=== PATIENT | female | born 1985 | race Caucasian/White ===

== ENCOUNTER → 2016-10-07 | Outpatient (CLI) | payer OTHER | LOC: OD 11:47 | PROVIDERS: ATTEND Nurse Practitioner | DX: G62.9 Polyneuropathy, unspecified (principal) | CPT/HCPCS: 72110 ==

== ENCOUNTER → 2016-10-21 | Outpatient (CLI) | payer OTHER | LOC: RAD 10:16 | PROVIDERS: ATTEND Nurse Practitioner | DX: G62.9 Polyneuropathy, unspecified (principal) | CPT/HCPCS: 70553; A9577 ==

== ENCOUNTER → 2016-12-11 | Outpatient (CLI) | payer OTHER | LOC: RAD 08:21 | PROVIDERS: ATTEND Nurse Practitioner | DX: G62.9 Polyneuropathy, unspecified (principal); M54.2 Cervicalgia | CPT/HCPCS: 72141; 72146 ==

== ENCOUNTER 2017-10-14 19:09 | Emergency (ER) | payer MEDICAID, OTHER ==
[2017-10-14] MEDS ORDERED: CYCLOBENZAPRINE HCL 10 MG TABLET PO ONE (20:09)
[2017-10-14] MEDS ORDERED: IBUPROFEN 800 MG TABLET PO ONE (20:09)
--- NOTE | 2017-10-14 20:09 | ER Document Report ---
HPI - HPI Patient complains to provider of: back pain Pain Level: 5 Context: Patient is a 32-year-old female presents emergency department with chief complaint of low back pain for the past 2 days. Patient states that she has a history of low back pain usually related to heavy lifting for her job. Patient states that she worked all this weekend that her back pain has become steadily worse. She admits to right paralumbar pain with associated sciatica. She also states that is on her left side but not as bad. She denies any urinary/ incontinence, saddle anesthesia. She states that she has taken over-the- counter Motrin approximately 400 mg at least twice a day which takes the edge off. She otherwise admits to intermittent headaches which she states are consistent with her previous history of tension headaches. She otherwise denies any fevers, chills. Primary care is with Elizabeth ELIZABETH and states very Past medical history significant for history of Raynolds, depression Past surgical history denies Social history current tobacco user, currently on Suboxone Last menstrual period unknown. Patient states she has an IUD - REPRODUCTIVE Reproductive: DENIES: : Past Medical History - Social History Smoking Status: Current Every Day Smoker Family History: Reviewed & Not Pertinent - Immunizations Hx Diphtheria, Pertussis, Tetanus Vaccination: Yes Vertical Provider Document - CONSTITUTIONAL Agree With Documented VS: Yes Notes: PHYSICAL EXAM GENERAL: Alert, interacts well. HEAD: Normocephalic, atraumatic. EYES: Pupils equal, round, and reactive to light. Extraocular movements intact. ENT: Oral mucosa moist, tongue midline. NECK: Full range of motion. Supple. Trachea midline. BACK: tenderness to palpation of the bilateral paralumbar musculature with pain reproducible to palpation 5 out of 5 strength both distally and proximally bilateral lower extremities. 2+ patellar reflexes bilaterally. No clonus. Sensation grossly intact in the bilateral lower extremities. Patient is able to ambulate without difficulty. EXTREMITIES: Moves all 4 extremities spontaneously. No edema, radial and dorsalis pedis pulses 2/4 bilaterally. No cyanosis. NEUROLOGICAL: Alert and oriented x4. Normal speech. PSYCH: Normal affect, normal mood. SKIN: Warm, dry, normal turgor. No rashes or lesions noted. - INFECTION CONTROL TRAVEL OUTSIDE OF THE [place] IN LAST 30 DAYS: No - RESPIRATORY O2 Sat by Pulse Oximetry: 99 Course - Re-evaluation Re-evalutation: 10/14/17 21:50 Patient is a 32-year-old female is hemodynamically stable, no acute distress and afebrile. The patient presents with low back pain without signs of spinal cord compression, cauda equina syndrome, infection, aneurysm, or other serious etiology. The patient is neurologically intact. Given the extremely low risk of these diagnoses further testing and evaluation for these possibilities does not appear to be indicated at this time. The patient has been instructed to return if the symptoms worsen or change in any way. Patient also requesting a splint for her left breast due to wrist sprain that she suffered at work a week ago. No evidence of deformity, underlying swelling. Full range of motion. - Vital Signs Vital signs: Temp Pulse Resp BP Pulse Ox 98.5 F 87 18 114/72 99 10/14/17 19:34 10/14/17 19:34 10/14/17 19:34 10/14/17 19:34 10/14/17 19:34 Discharge - Discharge Clinical Impression: Low back pain Qualifiers: Chronicity: acute Back pain laterality: bilateral Sciatica presence: with sciatica Sciatica laterality: bilateral sciatica Qualified Code(s): M54.42 - Lumbago with sciatica, left side; M54.41 - Lumbago with sciatica, right side; M54.41 - Lumbago with sciatica, right side Wrist pain Qualifiers: Laterality: left Qualified Code(s): M25.532 - Pain in left wrist Condition: Good Disposition: HOME, SELF-CARE Instructions: Wrist Sprain ([facility]) Additional Instructions: LOW BACK PAIN: Three out of every four people will have an episode of disabling back pain during their lifetime. Most commonly the pain is due to straining of the muscles and ligaments in the low back. Usual treatment includes: (1) Rest on a firm surface. Avoid lying on your stomach. (2) Ice pack the painful area. After a few days, gentle heat may be used intermittently to relax the area, or ice packs can be continued. (3) Medication may be needed -- muscle relaxers and antiinflammatory medicines are commonly used. (4) As the back improves, exercises are prescribed to strengthen the back and abdominal muscles. Your doctor will advise you on the proper care for your back at each stage in your recovery. You may be better in a few days -- or healing may take several weeks. If new symptoms of a "herniated disc" (radiation of pain, numbness, or tingling down the back of the leg or weakness in the leg) occur, you should be re-examined. Further testing may be necessary. MUSCLE RELAXERS: Muscle relaxing medications are usually prescribed for acute muscle spasm or injury to the neck and back. They are often combined with antiinflammatory pain medication for increased relief. You may stop the muscle relaxer when the pain and stiffness have improved. Start the medication again if spasms recur. Muscle relaxers may cause drowsiness, especially with the first dose. Do not operate machinery or drive while under the effects of the medication. Most muscle relaxers last up to 24 hours. Do not combine the medication with alcohol. ICE PACKS: Apply ice packs frequently against the painful area. Many different schedules are recommended, such as "20 minutes on, 20 minutes off" or "one hour ice, two hours rest." If you need to work, you may need to go longer between ice treatments. You should plan to have the area ice packed AT LEAST one fourth of the time. The ice should be applied over the wrap, tape, or splint, or over a layer of cloth -- not directly against the skin. Some ice bags have a built-in cloth and can be put directly on the skin. WARM PACKS: After approximately two days, apply gentle heat (such as a heating pad or hot water bottle) for about 20 to 30 minutes about every two hours -- at least four times daily. Warmth and elevation will help you make a more rapid recovery , and will ease the pain considerably. Do not use HOT heat, and never apply heat for longer than 30 minutes. The continuous heat can invisibly damage skin and muscles -- even when no burn is seen on the surface. Damaged muscles can make you MORE sore. FOLLOW-UP CARE: If you have been referred to a physician for follow-up care, call the physician s office for an appointment as you were instructed or within the next two days. If you experience worsening or a significant change in your symptoms, notify the physician immediately or return to the Emergency Department at any time for re-evaluation. Forms: Return to Work, Special Work Note
[2017-10-14 22:07] VITALS: BP 117/71
== END 2017-10-14 22:09 | disposition home or self-care (01) ==
LOC: ER 19:09
DX: M54.41 Lumbago with sciatica, right side (principal); M54.42 Lumbago with sciatica, left side; S63.502A Unspecified sprain of left wrist, initial encounter; M25.532 Pain in left wrist; X58.XXXA Exposure to other specified factors, initial encounter; R51 Headache; F17.200 Nicotine dependence, unspecified, uncomplicated; Z79.891 Long term (current) use of opiate analgesic
CPT/HCPCS: 99283; L3908; J3490 ×2

== ENCOUNTER → 2017-10-29 | Outpatient (CLI) | payer MEDICAID ==
--- NOTE | 2017-10-29 14:20 | RADIOLOGY REPORT (SQ) ---
EXAM DESCRIPTION: U/S ABDOMEN COMPLETE W/DOPPLER COMPLETED DATE/TIME: 10/29/2017 11:21 am REASON FOR STUDY: R10.9 UNSPECIFIED ABDOMINAL PAIN R10.9 UNSPECIFIED ABDOMINAL PAIN COMPARISON: Pelvic Ultrasound 07/31/2016 TECHNIQUE: Dynamic and static grayscale images acquired of the abdomen and recorded on PACS. Additio nal selected color Doppler and spectral images recorded. LIMITATIONS: None. FINDINGS: PANCREAS: Midline pancreas unremarkable LIVER: No masses. Echotexture normal. LIVER VASCULATURE: Normal directional flow of the main portal vein and hepatic veins. GALLBLADDER: No stones. Normal wall thickness. No pericholecystic fluid. ULTRASOUND-DETECTED CHOUDHURY'S SIGN: Negative. INTRAHEPATIC DUCTS AND COMMON DUCT: CBD and intrahepatic ducts normal caliber. No filling defects. INFERIOR VENA CAVA: Normal flow. AORTA: No aneurysm. RIGHT KIDNEY: Normal size. Normal echogenicity. No solid or suspicious masses. No hydronephros is. No calcifications. LEFT KIDNEY: Normal size. Normal echogenicity. No solid or suspicious masses. No hydronephrosi s. No calcifications. SPLEEN: Mild splenomegaly, 14 cm in greatest craniocaudad length. PERITONEAL AND PLEURAL SPACES: No ascites or effusions. OTHER: No other significant finding. IMPRESSION: Mild splenomegaly, 14 cm in length. Otherwise unremarkable abdominal ultrasound TECHNICAL DOCUMENTATION: JOB ID: [id number]- All Rights Reserved Reading location - IP/workstation name: [facility]
--- NOTE | 2017-10-29 14:22 | RADIOLOGY REPORT (SQ) ---
EXAM DESCRIPTION: U/S NON-OB PELVIS TV W/O DOP COMPLETED DATE/TIME: 10/29/2017 11:21 am REASON FOR STUDY: R10.9 R10.9 UNSPECIFIED ABDOMINAL PAIN COMPARISON: Pelvic ultrasound 06/30/2016 Lumbar spine plain films 10/07/2016 TECHNIQUE: Dynamic and static grayscale images acquired of the pelvis via transvaginal approach and recorded on PACS. Additional selected color Doppler and spectral images recorded. LIMITATIONS: None. FINDINGS: UTERUS: Contour normal. No mass. Uterus is 9.8 x 6.1 x 4.4 cm in size there is an IUD in the endometrial canal in good positioning. ENDOMETRIAL STRIPE: 6 mm in thickness. No focal or generalized endometrial thickening. No masses. CERVIX: No nabothian cysts. RIGHT OVARY: Right ovary 3.1 x 3 x 2.3 cm in size with a 2 cm cyst RIGHT OVARY DOPPLER: Normal arterial vascular flow without evidence for torsion. LEFT OVARY: No abnormal masses. Left ovary 3.7 x 2.2 x 2.1 cm in size LEFT OVARY DOPPLER: Normal arterial vascular flow without evidence for torsion. FREE FLUID: None noted. OTHER: No other significant finding. IMPRESSION: IUD in the endometrial canal in good positioning. 2 cm right ovarian cyst. TECHNICAL DOCUMENTATION: JOB ID: [id number] [employer]- All Rights Reserved Reading location - IP/workstation name: [email or web address]
== END ==
LOC: RAD 14:06
PROVIDERS: ATTEND Nurse Practitioner
DX: R10.9 Unspecified abdominal pain (principal)
CPT/HCPCS: 76700; 76830; 93976

== ENCOUNTER 2017-12-10 10:39 | Emergency (ER) | payer MEDICAID ==
[2017-12-10 10:53] VITALS: BP 132/76
--- NOTE | 2017-12-10 11:04 | ER Document Report ---
ED Skin Rash/Insect Bite/Abscs - General Chief Complaint: Rash Stated Complaint: POSSIBLE RASH Time Seen by Provider: 12/10/17 10:54 Notes: Patient is a 32-year-old female presenting to the emergency department complaining of several bug bites to the back of her neck 2 days. Patient works in [employer] department and is unsure of the type of insect that may have bitten her. TRAVEL OUTSIDE OF THE [place] IN LAST 30 DAYS: No - HPI Patient complains to provider of: Tender/swollen area, Insect bite Onset: Yesterday Onset/Duration: Gradual Quality of pain: No pain Skin Character: Papules Skin Temperature: Warm Quality of rash: Itchy Identify cause: No Similar symptoms previously: No Recently seen / treated by doctor: No - Related Data Allergies/Adverse Reactions: Penicillins Allergy (Verified 12/10/17 10:39) Sulfa (Sulfonamide Antibiotics) Allergy (Verified 12/10/17 10:39) Past Medical History - General Information source: Patient - Social History Smoking Status: Current Every Day Smoker Frequency of alcohol use: None Drug Abuse: None Lives with: Family Family History: Reviewed & Not Pertinent - Medical History Medical History: Negative Renal/ Medical History: Denies: Hx Peritoneal Dialysis - Immunizations Hx Diphtheria, Pertussis, Tetanus Vaccination: Yes Review of Systems - Review of Systems Constitutional: Chills, Malaise EENT: No symptoms reported Cardiovascular: No symptoms reported Respiratory: No symptoms reported Gastrointestinal: No symptoms reported Genitourinary: No symptoms reported Female Genitourinary: No symptoms reported Musculoskeletal: No symptoms reported Skin: See HPI Hematologic/Lymphatic: No symptoms reported Neurological/Psychological: No symptoms reported Physical Exam - Vital signs Vitals: Temp Pulse Resp BP Pulse Ox 98.1 F 75 16 132/76 H 98 12/10/17 10:50 12/10/17 10:50 12/10/17 10:50 12/10/17 10:50 12/10/17 10:50 Interpretation: Normal - General General appearance: Appears well, Alert - HEENT Head: Normocephalic, Atraumatic Eyes: Normal Pupils: PERRL - Respiratory Respiratory status: No respiratory distress Chest status: Nontender Breath sounds: Normal Chest palpation: Normal - Cardiovascular Rhythm: Regular Heart sounds: Normal auscultation Murmur: No - Abdominal Inspection: Normal Distension: No distension Bowel sounds: Normal Tenderness: Nontender Organomegaly: No organomegaly - Back Back: Normal, Nontender - Extremities General upper extremity: Normal inspection, Nontender, Normal color, Normal ROM , Normal temperature General lower extremity: Normal inspection, Nontender, Normal color, Normal ROM , Normal temperature, Normal weight bearing. No: Trevor's sign - Neurological Neuro grossly intact: Yes Cognition: Normal Orientation: AAOx4 [place] Coma Scale Eye Opening: Spontaneous Deni Coma Scale Verbal: Oriented [place] Coma Scale Motor: Obeys Commands Deni Coma Scale Total: 15 Speech: Normal Motor strength normal: LUE, RUE, LLE, RLE Sensory: Normal - Psychological Associated symptoms: Normal affect, Normal mood - Skin Skin Temperature: Warm Skin Moisture: Dry Skin Color: Normal Skin irregularity: Rash - Few clustered papular erythematous lesions to posterior neck. No vesicles. No fluctuance Course - Re-evaluation Re-evalutation: 12/10/17 11:14 History and physical are consistent with a hypersensitive reaction to an insect bite. There is no signs or symptoms of sepsis, Mackay Johnsons, meningitis. There is no pain with rash or diffuse erythroderma. No sloughing of skin 12/10/17 11:15 I will treat with oral and topical steroids, antihistamines and topical Dom Boros compresses for comfort. Home treatment, ED return precautions and primary care follow-up discussed. Patient agreeable with plan is stable for discharge - Vital Signs Vital signs: Temp Pulse Resp BP Pulse Ox 98.1 F 75 16 132/76 H 98 12/10/17 10:50 12/10/17 10:50 12/10/17 10:50 12/10/17 10:50 12/10/17 10:50 Discharge - Discharge Clinical Impression: Rash Insect bite Qualifiers: Encounter type: initial encounter Qualified Code(s): W57.XXXA - Bitten or stung by nonvenomous insect and other nonvenomous arthropods, initial encounter Condition: Stable Disposition: HOME, SELF-CARE Instructions: Swollen Insect Bite or Sting ([facility]), Steroid Medication, Topical Steroid Cream or Ointment ([facility]), Use of Diphenhydramine Additional Instructions: I am treating you for a hypersensitive to an insect bite Take all medications as prescribed I recommend Benadryl 50 mg every 6 hours until rash has improved Apply cool compresses to the bites for comfort and itch follow-up with your primary care if symptoms persist or worsen Prescriptions: Calcium Acetate/Al Sulfate [[place] Packet] 1 each TP TID PRN #30 packet PRN Reason: Hydrocortisone/Oatmeal/Aloe/E [Hydrocortisone 1% Cream] 1 applic TP BID #30 cream.gm. Ibuprofen [Motrin 800 Mg Tablet] 800 mg PO Q6H #20 tablet Prednisone 20 mg PO BID #16 tablet Forms: Return to Work
== END 2017-12-10 11:12 | disposition home or self-care (01) ==
LOC: ER 10:39
DX: S10.86XA Insect bite of other specified part of neck, initial encounter (principal); W57.XXXA Bitten or stung by nonvenomous insect and other nonvenomous arthropods, initial encounter; R53.81 Other malaise; R68.83 Chills (without fever); F17.200 Nicotine dependence, unspecified, uncomplicated; Z88.0 Allergy status to penicillin; Z88.2 Allergy status to sulfonamides
CPT/HCPCS: 99281

== ENCOUNTER 2018-03-19 18:37 | Observation (INO) | payer MEDICAID ==
[~2018-03-19 18:37] MED LIST: DEXAMETHASONE SOD PHOSPHATE INJ 4 MG/1 ML VIAL ONE; GLYCOPYRROLATE 1 MG/5 ML SYRINGE ONE; NEOSTIGMINE METHYLSULFATE 10 MG/10 ML VIAL ONE; ONDANSETRON HCL INJ/PF 4 MG/2 ML SDV ONE; ROCURONIUM BROMIDE INJ 50 MG/5 ML VIAL IV ONE; SUCCINYLCHOLINE CHLORIDE INJ 200 MG/10 ML VIAL ONE
[2018-03-19] MEDS ORDERED: ONDANSETRON 4 MG TAB.RAPDIS PO ONE (19:03)
--- NOTE | 2018-03-19 19:05 | ER Document Report ---
ED Medical Screen (RME) - General Chief Complaint: Lower Abdominal Pain Stated Complaint: ABDOMINAL PAIN Time Seen by Provider: 03/19/18 18:59 Notes: RAPID MEDICAL EVALUATION DISCLOSURE I have seen this patient as part of a Rapid Medical Evaluation and, if applicable, placed any initially appropriate orders. The patient will be seen and fully evaluated, including a full history and physical exam, by a provider ( in Main ED or Fast Track) when a room becomes available. 32-year-old female here with complaints of lower abdominal pain ongoing for the past day. She has had some associated nausea but no other symptoms. Pain is worse with movement. Has taken ibuprofen for the pain. States that she has frequency however this is baseline and unchanged from baseline she reports. Denies any previous history of UTI. EXAM Exquisite tenderness in all quadrants No peritoneal signs TRAVEL OUTSIDE OF THE [place] IN LAST 30 DAYS: No - Related Data Allergies/Adverse Reactions: Penicillins Allergy (Verified 03/19/18 18:39) Sulfa (Sulfonamide Antibiotics) Allergy (Verified 03/19/18 18:39) Past Medical History - Social History Chew tobacco use (# tins/day): No Frequency of alcohol use: None Drug Abuse: None Renal/ Medical History: Denies: Hx Peritoneal Dialysis - Immunizations Hx Diphtheria, Pertussis, Tetanus Vaccination: Yes Physical Exam - Vital signs Vitals: Temp Pulse Resp BP Pulse Ox 98.8 F 111 H 20 120/83 100 03/19/18 18:40 03/19/18 18:40 03/19/18 18:40 03/19/18 18:40 03/19/18 18:40 Course - Vital Signs Vital signs: Temp Pulse Resp BP Pulse Ox 98.8 F 111 H 20 120/83 100 03/19/18 18:40 03/19/18 18:40 03/19/18 18:40 03/19/18 18:40 03/19/18 18:40 Doctor's Discharge - Discharge Referrals: ALEC VELÁSQUEZ NP-C [Primary Care Provider] - Follow up as needed
[2018-03-19 19:45] LABS: ABSOLUTE BASOPHILS # (AUTO) 0.1 10^3/uL (0.0-0.2); ABSOLUTE EOSINOPHILS # (AUTO) 0.2 10^3/uL (0.0-0.6); ABSOLUTE LYMPHOCYTES (AUTO) 1.7 10^3/uL (0.5-4.7); ABSOLUTE NEUT (AUTO) 14.8 10^3/uL (1.7-8.2); BASOPHILS % (AUTO) 0.4 % (0-2); EOSINOPHILS % (AUTO) 0.9 % (0-6); HEMATOCRIT 42.4 % (36.0-47.0); HEMOGLOBIN 14.6 g/dL (12.0-15.5); LYMPHOCYTES % (AUTO) 9.8 % (13-45); MEAN CORPUSCULAR HEMOGLOBIN 29.1 pg (27.0-33.4); MEAN CORPUSCULAR HGB CONC 34.4 g/dL (32.0-36.0); MEAN CORPUSCULAR VOLUME 85 fl (80-97); MONOCYTES % (AUTO) 5.9 % (3-13); PLATELET COUNT 216 10^3/uL (150-450); RED BLOOD COUNT 5.01 10^6/uL (3.72-5.28); TOTAL CELLS COUNTED % (AUTO) 100 %; WHITE BLOOD COUNT 17.8 10^3/uL (4.0-10.5)
[2018-03-19 19:55] LABS: APPEARANCE,URINE CLEAR; BILIRUBIN,URINE NEGATIVE (NEGATIVE); COLOR,URINE YELLOW; GLUCOSE, URINE NEGATIVE (NEGATIVE); KETONES,URINE NEGATIVE (NEGATIVE); LEUKOCYTE ESTERASE,URINE NEGATIVE (NEGATIVE); NITRITE,URINE NEGATIVE (NEGATIVE); PROTEIN,URINE NEGATIVE (NEGATIVE); URINE SPECIFIC GRAVITY 1.012
[2018-03-19 20:14] LABS: ALANINE AMINOTRANSFERASE 16 U/L (9-52); ALBUMIN 4.7 g/dL (3.5-5.0); ALKALINE PHOSPHATASE 63 U/L (38-126); ANION GAP 15 (5-19); ASPARTATE AMINO TRANSFERASE 17 U/L (14-36); BILIRUBIN,DIRECT 0.3 mg/dL (0.0-0.4); BILIRUBIN,TOTAL 0.9 mg/dL (0.2-1.3); BLOOD UREA NITROGEN 9 mg/dL (7-20); CALCIUM 10.1 mg/dL (8.4-10.2); CARBON DIOXIDE 27 mmol/L (22-30); CHLORIDE 98 mmol/L (98-107); GLUCOSE 121 mg/dL (75-110); LIPASE 40.4 U/L (23-300); POTASSIUM 4.3 mmol/L (3.6-5.0); SODIUM 139.5 mmol/L (137-145); TOTAL PROTEIN 7.9 g/dL (6.3-8.2)
[2018-03-19] MEDS ORDERED: HYDROMORPHONE HCL INJ/PF 2 MG/ML AMPULE IV ONE ×2 (21:06→22:42)
--- NOTE | 2018-03-19 21:37 | ER Document Report ---
ED General - General Chief Complaint: Lower Abdominal Pain Stated Complaint: ABDOMINAL PAIN Time Seen by Provider: 03/19/18 18:59 TRAVEL OUTSIDE OF THE [place] IN LAST 30 DAYS: No - HPI Notes: 32-year-old female presents with lower abdominal pain since yesterday. Pain is gradually worsened. She is unable to describe the nature of the pain, but states it is severe and constant. She has nausea without vomiting. She has chills without fever. Normal bowel movement yesterday without blood. No diarrhea, pain with urination, vaginal discharge or bleeding. Unknown last menstrual period. She is in Suboxone treatment program for heroin use for the past 3 years. Denies similar pain in the past. No prior abdominal surgeries. No new sexual partners or history of STD. - Related Data Allergies/Adverse Reactions: Penicillins Allergy (Verified 03/19/18 18:39) Sulfa (Sulfonamide Antibiotics) Allergy (Verified 03/19/18 18:39) Past Medical History - Social History Smoking Status: Current Every Day Smoker Chew tobacco use (# tins/day): No Frequency of alcohol use: None Drug Abuse: None Family History: Reviewed & Not Pertinent Patient has suicidal ideation: No Patient has homicidal ideation: No Renal/ Medical History: Denies: Hx Peritoneal Dialysis - Immunizations Hx Diphtheria, Pertussis, Tetanus Vaccination: Yes Review of Systems - Review of Systems Notes: REVIEW OF SYSTEMS: CONSTITUTIONAL: -fevers, +chills EENT: -eye pain, -difficulty swallowing, -nasal congestion CARDIOVASCULAR: -chest pain, -syncope. RESPIRATORY: -cough, -SOB GASTROINTESTINAL: +abdominal pain, +nausea, -vomiting, -diarrhea GENITOURINARY: -dysuria, -hematuria, -VD/VB MUSCULOSKELETAL: -back pain, -neck pain SKIN: -rash or skin lesions. HEMATOLOGIC: -easy bruising or bleeding. LYMPHATIC: -swollen, enlarged glands. NEUROLOGICAL: -altered mental status or loss of consciousness, -headache, - neurologic symptoms PSYCHIATRIC: -anxiety, -depression. Physical Exam - Vital signs Vitals: Temp Pulse Resp BP Pulse Ox 98.8 F 111 H 20 120/83 100 03/19/18 18:40 03/19/18 18:40 03/19/18 18:40 03/19/18 18:40 03/19/18 18:40 Interpretation: Tachycardic - Notes Notes: PHYSICAL EXAMINATION: GENERAL: Crying, appears in pain. HEAD: Atraumatic, normocephalic. EYES: Pupils equal round and reactive to light, extraocular movements intact, conjunctiva are normal. ENT: nares patent, oropharynx clear without exudates. Moist mucous membranes. NECK: Normal range of motion, supple without lymphadenopathy LUNGS: Breath sounds clear to auscultation bilaterally and equal. No wheezes rales or rhonchi. HEART: Regular rate and rhythm, no chest wall tenderness ABDOMEN: Soft, significant tenderness to diffuse lower abdomen, especially to right upper and right lower quadrant and suprapubic region. Guarding and rebound present. No rigidity. Normal bowel sounds EXTREMITIES: Normal range of motion, no pitting or edema. No cyanosis. NEUROLOGICAL: Cranial nerves grossly intact. Normal speech, normal gait. Normal sensory and motor exams. PSYCH: Normal mood, normal affect. SKIN: Warm, Dry, normal turgor, no rashes or lesions noted. Course - Re-evaluation Re-evalutation: 03/19/18 21:36 Leukocytosis with significant pain, especially to the right lower quadrant. Concern for appendicitis. CT ordered. 03/19/18 22:41 CT consistent with acute appendicitis. Discussed with general surgery, Dr. Meredith. Recommended clindamycin. Pain treated. Patient updated on plan of care. - Vital Signs Vital signs: Temp Pulse Resp BP Pulse Ox 98.8 F 94 16 103/73 94 03/19/18 18:40 03/19/18 20:54 03/19/18 22:01 03/19/18 22:01 03/19/18 22:01 - Laboratory Result Diagrams: 03/19/18 19:37 03/19/18 19:37 Laboratory results interpreted by me: 03/19/18 03/19/18 03/19/18 19:10 19:37 19:37 WBC 17.8 H Seg Neutrophils % 83.0 H Lymphocytes % 9.8 L Absolute Neutrophils 14.8 H Glucose 121 H Urine Blood SMALL H Urine Urobilinogen 4.0 H Discharge - Discharge Clinical Impression: Acute appendicitis Condition: Good Disposition: ADMITTED INPATIENT Admitting Provider: Surgicalist Unit Admitted: Surgical Floor Referrals: ALEC VELÁSQUEZ NP-C [NURSE PRACTITIONER] - Follow up as needed
--- NOTE | 2018-03-19 22:22 | RADIOLOGY REPORT (SQ) ---
EXAM DESCRIPTION: CT ABD/PELVIS WITH IV ONLY COMPLETED DATE/TIME: 03/19/2018 9:40 pm REASON FOR STUDY: diffuse abd pain and TTP COMPARISON: None. TECHNIQUE: CT scan of the abdomen and pelvis performed using helical scanning technique with dynamic intravenous contrast injection. No oral contrast. Images reviewed with lung, soft tissue, and bone windows. Reconstructed coronal and sagittal MPR images reviewed. Delayed images for evaluation of the urinary system also acquired. All images stored on PACS. All CT scanners at this facility use dose modulation, iterative reconstruction, and/or weight based d osing when appropriate to reduce radiation dose to as low as reasonably achievable (ALARA). [facility]: Dose Right [facility]: CareDose [facility]: Dose Right [facility]: Teradose 4D [facility]: [employer] CONTRAST TYPE AND DOSE: contrast/concentration: Isovue 370.00 mg/ml; Total Contrast Delivered: 74.0 ml; Total Saline Delivered: 36.0 ml RENAL FUNCTION: None required. The patient is less than 50 years old. RADIATION DOSE: CT Rad equipment meets quality standard of care and radiation dose reduction techniq ues were employed. CTDIvol: 9.4 - 9.4 mGy. DLP: 989 mGy-cm.. LIMITATIONS: None. FINDINGS: LOWER CHEST: No significant findings. No nodules or infiltrates. LIVER: Normal size. No masses. No dilated ducts. SPLEEN: Normal size. No focal lesions. PANCREAS: No masses. No significant calcifications. No adjacent inflammation or peripancreatic fluid collections. Pancreatic duct not dilated. GALLBLADDER: No identified stones by CT criteria. No inflammatory changes to suggest cholecystitis. ADRENAL GLANDS: No significant masses or asymmetry. RIGHT KIDNEY AND URETER: No solid masses. No significant calcifications. No hydronephrosis or hyd roureter. LEFT KIDNEY AND URETER: No solid masses. No significant calcifications. No hydronephrosis or hydr oureter. AORTA AND VESSELS: No aneurysm. No dissection. Renal arteries, SMA, celiac without stenosis. RETROPERITONEUM: No retroperitoneal adenopathy, hemorrhage or masses. BOWEL AND PERITONEAL CAVITY: No masses or inflammatory changes. No free fluid or peritoneal masses. APPENDIX: 10 mm diameter appendix with moderate inflammatory changes throughout the adjacent right lo wer quadrant mesentery. PELVIS: Mild free fluid. IUD present in the uterus. Normal bladder. ABDOMINAL WALL: No masses. No hernias. BONES: No significant or acute findings. OTHER: No other significant finding. IMPRESSION: Acute appendicitis. TECHNICAL DOCUMENTATION: JOB ID: [id number] Quality ID # [id number]: Final reports with documentation of one or more dose reduction techniques (e.g., Au tomated exposure control, adjustment of the mA and/or kV according to patient size, use of iterative reconstruction technique) 2010 [employer]- All Rights Reserved Reading location - IP/workstation name: [facility]
[2018-03-19] MEDS ORDERED: RINGERS SOLUTION,LACTATED 1,000 ML IV ONE (22:41)
[2018-03-19] MEDS ORDERED: CLINDAMYCIN 600 MG/D5W RTU 600 MG/50 ML RTUPB IV ONE (23:10)
[2018-03-19] MEDS ORDERED: BUPIVACAINE HCL 0.25 % INJ/PF (2.5 MG/1 ML) 30 ML VIAL ONE (23:10)
[2018-03-19] MEDS ORDERED: FENTANYL CITRATE INJ/PF 250 MCG/5 ML AMPULE ONE (23:23)
[2018-03-19] MEDS ORDERED: HYDROMORPHONE HCL INJ/PF 2 MG/ML AMPULE ONE (23:24)
[2018-03-19] MEDS ORDERED: MIDAZOLAM 2 MG/2 ML INJ ONE (23:24)
[2018-03-19] MEDS ORDERED: PROPOFOL INJ 200 MG/20 ML VIAL IV ONE (23:24)
[2018-03-19] MEDS ORDERED: ACETAMINOPHEN 1,000 MG/100 ML RTUPB IV ONE (23:24)
--- NOTE | 2018-03-19 23:26 | PDOC H&P ---
History of Present Illness Admission Date/PCP: 03/19/18 22:50 Patient complains of: Abdominal pain History of Present Illness: TANYA HARRISON is a 32 year old female Presents to the emergency department complaining of a 30 hour history of abdominal pain started yesterday mid day during work, right lower quadrant no nausea vomiting no anorexia. Worsened to generalized abdominal pain with anorexia but no vomiting. She had very little bleeding drink overnight. She went back to work today, and was told to go home because of persisting pain. She was seen in the emergency department approximately 4 hours ago was found to have right lower quadrant tenderness with guarding, leukocytosis and CT scan findings consistent with acute appendicitis. Surgery was consulted, she was advised admission and definitive management. patient denies history of previous abdominal problems or previous abdominal surgery. Past Medical History Medical History: None Past Surgical History Past Surgical History: Reports: None Social History Smoking Status: Current Every Day Smoker Hx Recreational Drug Use: No Hx Prescription Drug Abuse: No Family History Family History: Reviewed & Not Pertinent Parental Family History Reviewed: Yes Children Family History Reviewed: Yes Sibling(s) Family History Reviewed.: Yes Medication/Allergy Home Medications: No Home Medications 1 03/19/12 Hydrocodone/Acetaminophen [Vicodin 5-300 mg Tablet] 1 - 2 tab PO ASDIR PRN #15 tab 01/02/14 Ibuprofen 800 mg PO Q8HP PRN #30 tablet 01/02/14 Azithromycin [Zithromax 250 mg Tablet] 250 mg PO DAILY #4 tablet 09/07/14 Hydrocodone/Acetaminophen [Hydrocodon-Acetaminophen 5-325] 1 each PO Q4 #15 tablet 09/07/14 Prednisone [Deltasone 10 mg Tablet] 10 mg PO ASDIR PRN #21 tablet 09/07/14 Methocarbamol [Robaxin] 500 mg PO BID PRN #20 tablet 04/01/15 Oxycodone HCl/Acetaminophen [Percocet 5-325 mg Tablet] 1 - 2 tab PO Q4H PRN #15 tablet 04/01/15 Cyclobenzaprine HCl [Flexeril 10 mg Tablet] 10 mg PO TIDP PRN #15 tab 10/14/17 Ibuprofen [Motrin 800 mg Tablet] 800 mg PO Q8H PRN #30 tab 10/14/17 Calcium Acetate/Al Sulfate [[place] Packet] 1 each TP TID PRN #30 packet Hydrocortisone/Oatmeal/Aloe/E [Hydrocortisone 1% Cream] 1 applic TP BID #30 cream.gm. 12/10/17 Ibuprofen [Motrin 800 Mg Tablet] 800 mg PO Q6H #20 tablet 12/10/17 Prednisone 20 mg PO BID #16 tablet 12/10/17 Allergies/Adverse Reactions: Penicillins Allergy (Verified 03/19/18 18:39) Sulfa (Sulfonamide Antibiotics) Allergy (Verified 03/19/18 18:39) Review of Systems Eyes: ABSENT: visual disturbances Ears: ABSENT: hearing changes Cardiovascular: ABSENT: chest pain, dyspnea on exertion, edema, orthropnea, palpitations Respiratory: ABSENT: cough, hemoptysis Gastrointestinal: PRESENT: as per HPI Genitourinary: ABSENT: dysuria, hematuria Endocrine: ABSENT: cold intolerance, heat intolerance, polydipsia, polyuria Hematologic/Lymphatic: ABSENT: easy bleeding, easy bruising Physical Exam Vital Signs: Temp Pulse Resp BP Pulse Ox 98.8 F 94 16 103/73 94 03/19/18 18:40 03/19/18 20:54 03/19/18 22:01 03/19/18 22:01 03/19/18 22:01 General appearance: PRESENT: mild distress Head exam: PRESENT: normocephalic Eye exam: PRESENT: EOMI Mouth exam: PRESENT: dry mucosa Neck exam: PRESENT: full ROM Respiratory exam: PRESENT: clear to auscultation jordana Cardiovascular exam: PRESENT: RRR Pulses: PRESENT: normal carotid pulses, normal radial pulses, normal femoral pulses GI/Abdominal exam: PRESENT: other - Very tender right lower quadrant with guarding surgical slight abdominal distention Rectal exam: PRESENT: deferred Extremities exam: PRESENT: full ROM Musculoskeletal exam: PRESENT: full ROM Neurological exam: PRESENT: alert, oriented to person, oriented to place Psychiatric exam: PRESENT: anxious Results Impressions: Abdomen/Pelvis CT 03/19/18 19:02 IMPRESSION: Acute appendicitis. Assessment & Plan - Diagnosis (1) Acute appendicitis Is this a current diagnosis for this admission?: Yes Plan: Recommendations: 1. Admit, IV fluids, intravenous and n.p.o. 2. Take patient to the operating room for laparoscopic, possible open appendectomy, 1 hour, possible drain placement. Risks benefits and alternatives of planned procedure including bleeding, infection, need for additional surgery drain placement, drain replacement all discussed with the patient. I believe she understands and agrees to proceed. - Time Time Spent: 30 to 50 Minutes Critical Time spent with patient: Less than 15 minutes Medications reviewed and adjusted accordingly: Yes Anticipated discharge: Home - Inpatient Certification Based on my medical assessment, after consideration of the patient's comorbidities, presenting symptoms, or acuity I expect that the services needed warrant INPATIENT care.: Yes I certify that my determination is in accordance with my understanding of Medicare's requirements for reasonable and necessary INPATIENT services [42 CFR 412.3e].: Yes Medical Necessity: Need For IV Fluids, Need for Pain Control, Need for IV Antibiotics, Need for Surgery
[2018-03-20] MEDS ORDERED: FENTANYL CITRATE INJ/PF 100 MCG/2 ML AMPUL IV PRN ×3 (00:03)
[2018-03-20] MEDS ORDERED: MEPERIDINE HCL/PF INJ 25 MG/1 ML DISP.SYRIN IV PRN (00:03)
[2018-03-20] MEDS ORDERED: DIPHENHYDRAMINE HCL 50 MG/ML VIAL IV PRN (00:03)
[2018-03-20] MEDS ORDERED: PROMETHAZINE HCL INJ 25 MG/1 ML VIAL IV PRN ×2 (00:03)
[2018-03-20] MEDS ORDERED: MORPHINE SULFATE 10 MG/ML INJ IV PRN ×2 (00:03→23:02)
[2018-03-20] MEDS ORDERED: OXYCODONE-ACETAMINOPHEN 5-325 MG TABLET PO PRN ×2 (00:03)
--- NOTE | 2018-03-20 00:31 | Operative Report ---
Operative Report DATE OF SURGERY: 03/20/18 PREOPERATIVE DIAGNOSIS: Acute appendicitis POSTOPERATIVE DIAGNOSIS: Acute, suppurative appendicitis OPERATION: Laparoscopic appendectomy with drain placement SURGEON: ELIF PETERSON ANESTHESIA: GA TISSUE REMOVED OR ALTERED: Appendix COMPLICATIONS: None ESTIMATED BLOOD LOSS: Scant INTRAOPERATIVE FINDINGS: See below PROCEDURE: Patient taken to the preop holding area the main operating room where general anesthesia was induced. The abdomen was exposed, arms abducted, the abdomen prepped and draped sterile fashion and instrumentation set up for laparoscopic appendectomy. Markings were made on the skin for 3 compartment appendectomy performed laparoscopically. A supraumbilical vertical incision was made with a knife after anesthesia applied with 1% lidocaine and a 25-gauge needle. A Veress needle was inserted the peritoneal cavity the needle was removed, and a 5 mm viewing scope was used under direct visualization suprapubic 5 mm port was inserted and a 12 mm left lower quadrant port was inserted. There is no evidence of vascular or visceral injury Findings are significant for acutely inflamed suppurative appendicitis with the tip heading towards the pelvic brim and deep to it. Graspers were placed on the mesoappendix and the appendix was elevated cephalad and anteriorly. Loculations were broken up with suction, and the adhesions were broken up as well as the mesoappendix taken down with the LigaSure device. We now have the appendix suspended by space which was somewhat tenuous. Photographs were taken. The appendix was amputated at its base with a single firing of the Endo BERKLEY blue load. The appendix was placed in an Endobag and brought the patient to the left lower quadrant port site. We returned the peritoneal cavity check for bleeding there was none. The local inflammatory area was irrigated minimally with saline and a large leg drain was placed in the recess of the site where the appendix was removed. We checked for bleeding there was none. All ports removed under direct visualization pneumoperitoneum evacuated wounds closed with 3-0 Vicryl benzoin and Steri- Strips. Drain secured to skin with 2-0 Prolene suture. Patient tolerated procedure well, was extubated, and then taken to the recovery room in stable condition.
[2018-03-20] MEDS: FENTANYL CITRATE INJ/PF 100 MCG/2 ML AMPUL ONE ×3 (00:43→01:05)
[2018-03-20] MEDS ORDERED: CLINDAMYCIN 600 MG/D5W RTU 600 MG/50 ML RTUPB IV SCH ×3 (06:00→23:00)
[2018-03-20] MEDS ORDERED: CLINDAMYCIN 600 MG/D5W RTU 600 MG/50 ML RTUPB IV ONE (06:04)
[2018-03-20] MEDS: KETOROLAC TROMETHAMINE INJ/PF 30 MG/1 ML SDV IV PRN ×3 (07:47→19:32)
[2018-03-20] MEDS ORDERED: NICOTINE 21 MG/24 HR PATCH.TD24 TD ONE (11:30)
[2018-03-20] MEDS: OXYCODONE-ACETAMINOPHEN 5-325 MG TABLET PO PRN ×2 (11:45→19:32)
[2018-03-20] MEDS: CLINDAMYCIN 600 MG/D5W RTU 600 MG/50 ML RTUPB IV SCH ×2 (13:44→22:50)
[2018-03-20] MEDS ORDERED: OXYCODONE-ACETAMINOPHEN 5-325 MG TABLET PO ONE (15:00)
--- NOTE | 2018-03-20 23:24 | PDOC PROGRESS REPORT ---
Subjective Progress Note for:: 03/20/18 Subjective:: still with a lot of pains but better than pre-op Reason For Visit: ACUTE APPENDICITIS Physical Exam Vital Signs: Temp Pulse Resp BP Pulse Ox 97.4 F 67 24 H 113/64 96 03/20/18 20:11 03/20/18 15:05 03/20/18 20:11 03/20/18 20:11 03/20/18 15:05 Intake & Output 03/19/18 03/20/18 03/21/18 06:59 06:59 06:59 Intake Total 2940 100 Output Total 827 1290 Balance 2113 -1190 Weight 83 kg Exam: abd is soft ,mild RLQ tenderness Results Impressions: Abdomen/Pelvis CT 03/19/18 19:02 IMPRESSION: Acute appendicitis. Assessment & Plan - Time Time Spent with patient: 15-24 minutes - Plan Summary Plan Summary: Start clears and increase as tolerated Check WBC in am prior to discharge
[2018-03-20 23:51] LABS: ABSOLUTE LYMPHOCYTES (AUTO) 1.7 10^3/uL (0.5-4.7); ABSOLUTE MONOCYTES (AUTO) 0.9 10^3/uL (0.1-1.4); BASOPHILS % (AUTO) 0.2 % (0-2); EOSINOPHILS % (AUTO) 0.3 % (0-6); HEMATOCRIT 34.6 % (36.0-47.0); LYMPHOCYTES % (AUTO) 12.6 % (13-45); MEAN CORPUSCULAR HEMOGLOBIN 29.2 pg (27.0-33.4); MEAN CORPUSCULAR HGB CONC 34.5 g/dL (32.0-36.0); MEAN CORPUSCULAR VOLUME 85 fl (80-97); MONOCYTES % (AUTO) 6.7 % (3-13); PLATELET COUNT 167 10^3/uL (150-450); RED CELL DISTRIBUTION WIDTH 12.7 % (11.5-14.0); SEGMENTED NEUTROPHILS % (AUTO) 80.2 % (42-78); TOTAL CELLS COUNTED % (AUTO) 100 %; WHITE BLOOD COUNT 13.7 10^3/uL (4.0-10.5)
[2018-03-20 23:52] LABS: HEMOGLOBIN 11.9 g/dL (12.0-15.5)
[2018-03-21] MEDS: KETOROLAC TROMETHAMINE INJ/PF 30 MG/1 ML SDV IV PRN (05:42)
[2018-03-21] MEDS: CLINDAMYCIN 600 MG/D5W RTU 600 MG/50 ML RTUPB IV SCH (05:42)
[2018-03-21] MEDS ORDERED: NICOTINE 21 MG/24 HR PATCH.TD24 TD SCH (10:00)
[2018-03-21] MEDS ORDERED: (PENDING PHARMACY ID) (Buprenorphine Hcl/Naloxone Hcl [Suboxone 8 Mg-2 Mg Sl Film] 1 FILM) SL SCH (10:00)
[2018-03-21] MEDS ORDERED: Buprenorphine Hcl/Naloxone Hcl [Suboxone 8 Mg-2 Mg Sl Film] 1 FILM SL ONE (10:30)
[2018-03-21 13:45] VITALS: BP 107/62
[2018-03-21] MEDS ORDERED: Buprenorphine Hcl/Naloxone Hcl [Suboxone 8 Mg-2 Mg Sl Film] 1 FILM SL SCH (14:00)
== END 2018-03-21 14:15 | disposition home or self-care (01) ==
LOC: ER 18:37 → EH 22:50 → INTOOBSV 22:50 → EH 23:43 → 3S 03-20 01:58
PROVIDERS: ATTEND Surgery
PROC: 0DTJ4ZZ Resection of Appendix, Percutaneous Endoscopic Approach (ICD-10-PCS; principal; 2018-03-20)
DX: K35.80 Unspecified acute appendicitis (principal); K38.8 Other specified diseases of appendix; F11.20 Opioid dependence, uncomplicated; F17.200 Nicotine dependence, unspecified, uncomplicated; R00.0 Tachycardia, unspecified; Z79.899 Other long term (current) drug therapy
CPT/HCPCS: 99285; 96374; 36415 ×2; 83690; 85025 ×2; 81025; 80053; 81001; 88304 ×2; 74177; 44970; J2250; S0077 ×3; J3490 ×4; J1100; S0119; J3010 ×2; J1885 ×2; J2270; J1170; J0330; J2405; S0020; J7120; J2704; J0131; 840

== ENCOUNTER 2018-04-26 10:21 | Emergency (ER) | payer MEDICAID ==
[2018-04-26 11:35] VITALS: BP 130/73
--- NOTE | 2018-04-26 11:39 | ER Document Report ---
ED Medical Screen (RME) - General Chief Complaint: Post Surgical Bleeding Stated Complaint: POST SURGICAL CHECK Time Seen by Provider: 04/26/18 11:29 Mode of Arrival: Ambulatory Information source: Patient TRAVEL OUTSIDE OF THE [place] IN LAST 30 DAYS: No - HPI Patient complains to provider of: Stitch abscess Onset: Other - This 33-year-old female presents for evaluation of a abscess on the abdomen which she noticed today while at work. She had a appendectomy done approximately 1 month prior today she was picking along a scab at which time she pulled out a long white thread with some pus. She has not had any pain fevers chills redness swelling or other symptoms. She has never had anything like this before, nothing is made it better or worse. - Related Data Allergies/Adverse Reactions: Penicillins Allergy (Verified 04/26/18 11:29) Sulfa (Sulfonamide Antibiotics) Allergy (Verified 04/26/18 11:29) Past Medical History - General Information source: Patient - Social History Chew tobacco use (# tins/day): No Frequency of alcohol use: None Drug Abuse: Other Renal/ Medical History: Denies: Hx Peritoneal Dialysis Psychiatric Medical History: Reports: Hx Depression Past Surgical History: Reports: Hx Appendectomy - Immunizations Hx Diphtheria, Pertussis, Tetanus Vaccination: Yes Review of Systems - Review of Systems -: Yes All other systems reviewed and negative Physical Exam - Vital signs Vitals: Temp Pulse Resp BP Pulse Ox 98.4 F 78 18 124/67 99 04/26/18 10:31 04/26/18 10:31 04/26/18 10:31 04/26/18 10:31 04/26/18 10:31 - General General appearance: Appears well In distress: None - HEENT Head: Normocephalic Eyes: Normal Conjunctiva: Normal - Respiratory Respiratory status: No respiratory distress Chest status: Nontender Breath sounds: Normal Chest palpation: Normal - Cardiovascular Rhythm: Regular Heart sounds: Normal auscultation Murmur: No - Abdominal Inspection: Normal - There is a small superficial abrasion in the left lower quadrant of the abdomen with a bit of active draining, no appreciable fluctuance underlying no obvious overlying erythema - Back Back: Normal - Extremities General upper extremity: Normal inspection, Normal ROM General lower extremity: Normal inspection, Normal ROM - Neurological Neuro grossly intact: Yes Cognition: Normal Orientation: AAOx4 [place] Coma Scale Eye Opening: Spontaneous [place] Coma Scale Verbal: Oriented Course - Re-evaluation Re-evalutation: 04/26/18 21:06 This healthy 33-year-old female presented for evaluation after she picked on her abdominal wound today and then pulled out along thread with some pus on it. She has not had any issues related to abscesses since her surgery approximately 1 month prior it sounds like this was likely a dissolvable stitch we had not completely resolved. We will presumptively treat for possible developing stitch abscess though it is drained and does not appear to be worsening at this time will give return precautions encouraged follow-up in surgery clinic. - Vital Signs Vital signs: Temp Pulse Resp BP Pulse Ox 97.5 F 75 16 130/73 H 99 04/26/18 11:34 04/26/18 11:34 04/26/18 11:34 04/26/18 11:34 04/26/18 11:34 Doctor's Discharge - Discharge Clinical Impression: Postoperative stitch abscess Condition: Good Disposition: HOME, SELF-CARE Instructions: Abscess (OM), Cephalexin ([facility]) Additional Instructions: You were seen in the emergency department for your stitch abscess. You had a physical exam, it appears that he may have a small stitch abscess take the antibiotic as prescribed as needed use warm compresses for at least 15- 20 minutes twice daily. Prescriptions: Cephalexin Monohydrate [Keflex 500 mg Capsule] 500 mg PO TID 5 Days #30 capsule Forms: Special Work Note, Smoking Cessation Education
== END 2018-04-26 11:37 | disposition home or self-care (01) ==
LOC: ER 10:21
DX: T81.4XXA Infection following a procedure, initial encounter (principal); L02.211 Cutaneous abscess of abdominal wall; Y83.6 Removal of other organ (partial) (total) as the cause of abnormal reaction of the patient, or of later complication, without mention of misadventure at the time of the procedure; Z88.0 Allergy status to penicillin; Z88.2 Allergy status to sulfonamides
CPT/HCPCS: 99283

== ENCOUNTER 2020-04-28 02:40 | Emergency (ER) | payer SELFPAY ==
[2020-04-28] MEDS ORDERED: BENZONATATE 100 MG CAPSULE PO ONE (04:27)
[2020-04-28] MEDS ORDERED: ALBUTEROL SULFATE HFA (90 MCG/PUFF) 8 GM MDI (1 MDI/ER DISP) IH PRN (04:27)
[2020-04-28] MEDS ORDERED: PREDNISONE 20 MG TABLET PO ONE (04:28)
--- NOTE | 2020-04-28 04:36 | ER Document Report ---
ED General - General Stated Complaint: COUGH/SORE THROAT/HEADACHE/SHORTNESS OF BREATH Time Seen by Provider: 04/28/20 04:08 TRAVEL OUTSIDE OF THE [place] IN LAST 30 DAYS: No - HPI Notes: Patient is a 35-year-old female who presents to the emergency department for evaluation. She is been coughing for 2 weeks. She states is gotten worse over the last 2 days. She is a smoker. She denies any fevers or chills. She has had a sore throat, but she attributes this entirely to coughing. She states she also has a headache, that only really hurts when she coughs. She has had some shortness of breath. She denies any nausea or vomiting. No diarrhea. - Related Data Allergies/Adverse Reactions: Penicillins Allergy (Verified 04/26/18 11:29) Sulfa (Sulfonamide Antibiotics) Allergy (Verified 04/26/18 11:29) Home Medications: Was on Celexa, stopped 2 weeks ago because she lost her insurance Past Medical History - General Information source: Patient - Social History Smoking Status: Current Every Day Smoker Family History: Reviewed & Not Pertinent Pulmonary Medical History: Reports: Hx Bronchitis Renal/ Medical History: Denies: Hx Peritoneal Dialysis Psychiatric Medical History: Reports: Hx Depression Past Surgical History: Reports: Hx Appendectomy - Immunizations Hx Diphtheria, Pertussis, Tetanus Vaccination: Yes Review of Systems - Review of Systems Constitutional: Malaise EENT: See HPI Cardiovascular: No symptoms reported - 2 days Respiratory: See HPI Gastrointestinal: No symptoms reported Genitourinary: No symptoms reported Musculoskeletal: No symptoms reported Skin: No symptoms reported Neurological/Psychological: No symptoms reported Physical Exam - Vital signs Vitals: Temp Pulse Resp BP Pulse Ox 98.6 F 124 H 22 H 122/83 99 04/28/20 02:50 04/28/20 02:50 04/28/20 02:50 04/28/20 02:50 04/28/20 02:50 - Notes Notes: Vital signs reviewed, please refer to chart. Head is normocephalic, atraumatic. Pupils equal round, reactive to light. Oral mucosa is moist. Mildly erythematous pharynx without exudate or tonsillar enlargement. Neck is supple without meningismus. Heart is regular rate and rhythm. Lungs reveal occasional expiratory wheezes and rhonchi, but no increased work of breathing. Abdomen is soft, nontender, normoactive bowel sounds throughout. Extremities without cyanosis, clubbing. Posterior calves are nontender. Peripheral pulses are equal. Skin is warm and dry. Patient is awake, alert, neurological exam is nonfocal. Course - Re-evaluation Re-evalutation: 04/28/20 04:39 Patient presents to the emergency department for evaluation. She has occasional wheezing. She states she usually does well with an inhaler and Zithromax. I explained to her that Zithromax is not indicated to treat a bronchitis, but I will check a chest x-ray to be sure she does not have pneumonia. Otherwise she is given albuterol inhaler, steroids, Tessalon Perles. My plan will be to send her home with a prescription for same. Awaiting chest x-ray, if it is negative, patient will go home with a diagnosis of bronchitis and instructions to quit smoking. - Vital Signs Vital signs: Temp Pulse Resp BP Pulse Ox 98.6 F 124 H 22 H 122/83 99 04/28/20 02:50 04/28/20 02:50 04/28/20 02:50 04/28/20 02:50 04/28/20 02:50 - Diagnostic Test Radiology reviewed: Image reviewed Radiology results interpreted by me: 04/28/20 05:18 Chest x-ray interpreted by myself without the aid of a radiologist as showing no acute cardiopulmonary disease Discharge - Discharge Clinical Impression: Acute bronchitis Condition: Stable Disposition: HOME, SELF-CARE Instructions: Bronchitis With Bronchospasm (Wheezing) ([facility]) Additional Instructions: Rest, stay well-hydrated. Take medications as prescribed. Try to quit smoking. Follow-up with primary care next week. Return to the emergency department worsening or new concerning symptoms of any sort. Forms: Smoking Cessation Education
--- NOTE | 2020-04-28 05:19 | RADIOLOGY REPORT (SQ) ---
CHEST X-RAY 1 VIEW on 04/28/2020 at 5:04 AM CLINICAL INDICATION: Cough COMPARISON: 12/27/2015 FINDINGS: There is evidence of prior calcified granulomatous disease within the chest. The lungs are otherwise clear. Cardiac, hilar and mediastinal contours are within normal limits. Pulmonary vascularity is within normal limits. No bony abnormality is noted. IMPRESSION: No active disease.
[2020-04-28 05:40] VITALS: BP 108/63
== END 2020-04-28 05:30 | disposition home or self-care (01) ==
LOC: ER 02:40
DX: J20.9 Acute bronchitis, unspecified (principal); R05 Cough; J02.9 Acute pharyngitis, unspecified; R51 Headache; R06.02 Shortness of breath; R06.2 Wheezing; F17.200 Nicotine dependence, unspecified, uncomplicated; Z88.0 Allergy status to penicillin; Z88.2 Allergy status to sulfonamides
CPT/HCPCS: 99283; 71045; J7512